=== PATIENT | male | born 1955 | race African-American/Black ===

== ENCOUNTER 2016-12-20 20:12 | Emergency (ER) | payer OTHER ==
[~2016-12-20] VITALS: Ht 180.3 cm; Wt 72.0 kg
[~2016-12-20 20:12] MED LIST: CALC0.253 PO; CALCIUM ACETATE PO; CINA30 PO; FURO80TA3 PO; SEVE800T8 PO; VALS320T9 PO
[2016-12-20] MEDS ORDERED: HYDRALAZINE 20MG/ML VIAL IV ONE (21:30)
[2016-12-20 21:49] LABS: PROTHROMBIN TIME 10.5 sec
[2016-12-20 21:50] LABS: EOSINOPHILS % 4.4 % (0.0-5.0); HEMATOCRIT. 37.2 % (42.0-52.0); HEMOGLOBIN. 11.9 g/dL (14.0-18.0); LYMPHOCYTES % 36.8 % (20.0-50.0); MEAN CORPUSCULAR HEMOGLOBIN 28.7 pg (28.0-32.0); MEAN CORPUSCULAR VOLUME 89.8 fL (80.0-94.0); MONOCYTES % 10.7 % (2.0-8.0); NEUTROPHILS % 47.1 % (40.0-76.0); PLATELET 210 x1000/uL (130-400); RED BLOOD CELL COUNT 4.15 mill/uL (4.7-6.1); RED CELL DISTRIBUTION WIDTH 19.7 % (11.6-14.6); WHITE BLOOD COUNT 3.8 x1000/uL (4.5-11.0)
[2016-12-20 21:58] LABS: ALANINE AMINOTRANSFERASE 11 IU/L (13-61); ALBUMIN 3.2 g/dL (3.4-5.0); ANION GAP 13; CALCIUM 8.6 mg/dL (8.5-10.1); CARBON DIOXIDE 33 mEq/L (21-32); CHLORIDE 96 mEq/L (98-107); INDEX HEMOLYSI 1 (1-3); INDEX ICTERIC 1 (1-4); INDEX LIPEMIC 1 (1-3); NT PRO B-TYPE NATRIURETIC PEP 5373 pg/mL (5-125); TROPONIN I < 0.02 ng/mL (0.00-0.04); UREA NITROGEN BLOOD 36 mg/dL (7-21); eGFR 7 mL/min (>60)
[2016-12-20 23:49] VITALS: BP 144/104
== END 2016-12-20 23:50 | disposition home or self-care (01) ==
LOC: ER 20:13
DX: I11.9 Hypertensive heart disease without heart failure (principal); R06.02 Shortness of breath; I25.10 Atherosclerotic heart disease of native coronary artery without angina pectoris; Z88.0 Allergy status to penicillin; Z79.899 Other long term (current) drug therapy
CPT/HCPCS: 36415; 71010; 80053; 83880; 84484; 85025; 85610; 93005; 96374; 99285; J0360; Z7610

== ENCOUNTER 2018-02-27 18:33 | Inpatient (IN) | payer OTHER ==
[~2018-02-27] VITALS: Ht 175.3 cm; Wt 75.3 kg
[~2018-02-27 18:33] MED LIST changes: +VALS320T2 PO; -VALS320T9 PO
[2018-02-27] MEDS ORDERED: ACETAMINOPHEN 325MG TABLET PO STA (19:19)
[2018-02-27] MEDS ORDERED: NITROGLYCERIN OINT 1GM/INCH UDPKT TD ONE (19:30)
[2018-02-27] MEDS ORDERED: ASPIRIN 81MG TABLET PO ONE (19:30)
[2018-02-27 19:55] LABS: BASOPHILS % 1.1 % (0.0-2.0); EOSINOPHILS % 3.7 % (0.0-5.0); HEMATOCRIT. 31.1 % (42.0-52.0); HEMOGLOBIN. 10.9 g/dL (14.0-18.0); LYMPHOCYTES % 24.1 % (20.0-50.0); MEAN CORPUSCULAR HEMOGLOBIN 29.3 pg (28.0-32.0); MEAN PLATELET VOLUME 7.1 fl (7.4-10.4); MONOCYTES % 8.8 % (2.0-8.0); NEUTROPHILS % 62.3 % (40.0-76.0); PLATELET 208 x1000/uL (130-400); RED CELL DISTRIBUTION WIDTH 13.8 % (11.6-14.6)
[2018-02-27 20:01] LABS: CHLORIDE 99 mEq/L (98-107)
[2018-02-27 20:04] LABS: ETHANOL BLOOD < 10 mg/dL; PROTHROMBIN TIME 10.4 sec (9.4-11.6)
[2018-02-28 03:00] VITALS: BP 134/78
[2018-02-28] MEDS ORDERED: MINO2.5T19 PO (04:03)
[2018-02-28] MEDS ORDERED: NIFE90TA34 PO (04:03)
[2018-02-28] MEDS: PANTOPRAZOLE 40MG DR TABLET PO SCH (06:19)
[2018-02-28 08:00] VITALS: BP 109/65
[2018-02-28] MEDS: SEVELAMER CARBONATE 800 MG TABLET PO SCH ×3 (08:49→16:45)
[2018-02-28] MEDS: CALCIUM ACETATE 667MG CAPSULE PO SCH ×3 (08:49→16:45)
[2018-02-28] MEDS: FUROSEMIDE 80MG TABLET PO SCH (08:50)
[2018-02-28] MEDS: NIFEDIPINE XL 90MG TAB PO SCH (08:50)
[2018-02-28] MEDS: HEPARIN 5000 UNITS/ML VIAL SUBCUT SCH ×2 (08:50→21:54)
[2018-02-28] MEDS: ASPIRIN 81MG TABLET PO SCH (08:50)
[2018-02-28] MEDS ORDERED: CALCIUM ACETATE 667 MG PO SCH (09:00)
[2018-02-28 09:33] LABS: CREATINE KINASE 93 IU/L (39-308)
[2018-02-28 09:34] LABS: CREATINE KINASE MB FRACTION 1.1 ng/mL (0.5-3.6)
[2018-02-28 12:14] VITALS: BP 123/75
[2018-02-28 16:12] VITALS: BP 151/88
[2018-02-28 17:56] LABS: CHLORIDE 94 mEq/L (98-107)
[2018-02-28 18:09] LABS: CREATINE KINASE 101 IU/L (39-308)
[2018-02-28 18:10] LABS: CREATINE KINASE MB FRACTION 1.3 ng/mL (0.5-3.6)
[2018-02-28] MEDS ORDERED: IOHEXOL-350 100 ML BOTTLE ONE (18:50)
[2018-02-28 20:00] VITALS: BP 167/101
[2018-02-28 23:25] LABS: CREATINE KINASE 116 IU/L (39-308)
[2018-02-28 23:26] LABS: CREATINE KINASE MB FRACTION 1.2 ng/mL (0.5-3.6)
[2018-03-01] VITALS: BP 159/90
[2018-03-01] MEDS: CLONIDINE 0.1MG TABLET PO PRN ×2 (03:02→17:09)
[2018-03-01 04:15] VITALS: BP 145/78
[2018-03-01] MEDS: PANTOPRAZOLE 40MG DR TABLET PO SCH (06:15)
[2018-03-01 08:00] VITALS: BP 150/83
[2018-03-01] MEDS: SEVELAMER CARBONATE 800 MG TABLET PO SCH ×2 (08:42→11:43)
[2018-03-01] MEDS: ASPIRIN 81MG TABLET PO SCH (08:42)
[2018-03-01] MEDS: CALCIUM ACETATE 667MG CAPSULE PO SCH ×2 (08:42→11:43)
[2018-03-01] MEDS: NIFEDIPINE XL 90MG TAB PO SCH (08:42)
[2018-03-01] MEDS: FUROSEMIDE 80MG TABLET PO SCH (08:42)
[2018-03-01] MEDS: HEPARIN 5000 UNITS/ML VIAL SUBCUT SCH (08:43)
[2018-03-01] MEDS ORDERED: SODIUM POLYSTYRENE SULFONATE 15 G/60 ML BOT PO NR (10:45)
[2018-03-01 12:00] VITALS: BP 156/90
[2018-03-01 13:51] LABS: T4 FREE 0.83 ng/dL (0.76-1.46)
[2018-03-01 16:00] VITALS: BP 170/100
[2018-03-01 16:58] VITALS: BP 173/98
[2018-03-02] MEDS ORDERED: FAMOTIDINE 20MG TABLET PO SCH (09:00)
== END 2018-03-01 17:40 | disposition home or self-care (01) | DRG 313 ==
LOC: ER 18:59 → 8WST 23:40 → EDBEDREQTM 23:56 → EDBEDREQ 23:56 → ENRESERV 02-28 01:57
PROVIDERS: ADMIT Internal Medicine; ATTEND Internal Medicine
DX: R07.89 Other chest pain (principal); I25.10 Atherosclerotic heart disease of native coronary artery without angina pectoris; I13.2 Hypertensive heart and chronic kidney disease with heart failure and with stage 5 chronic kidney disease, or end stage renal disease; K65.9 Peritonitis, unspecified; N18.6 End stage renal disease; I50.32 Chronic diastolic (congestive) heart failure; N25.81 Secondary hyperparathyroidism of renal origin; D63.8 Anemia in other chronic diseases classified elsewhere; M54.9 Dorsalgia, unspecified; E83.39 Other disorders of phosphorus metabolism; E87.5 Hyperkalemia; G89.29 Other chronic pain; R00.1 Bradycardia, unspecified; Z88.0 Allergy status to penicillin; Z99.2 Dependence on renal dialysis; Z82.49 Family history of ischemic heart disease and other diseases of the circulatory system; Z79.899 Other long term (current) drug therapy
CPT/HCPCS: 36415; 71045; 71275; 80048; 80053; 80061; 82550; 82553; 83690; 83735; 84439; 84443; 84484; 85025; 85610; 93005; G0482; J1644; J7030; Q9967

== ENCOUNTER 2018-11-23 19:00 | Inpatient (IN) | payer BC, OTHER ==
[~2018-11-23] VITALS: Ht 182.9 cm; Wt 78.6 kg
[~2018-11-23 19:00] MED LIST changes: -CALC0.253 PO; -CINA30 PO; +MINO2.5T19 PO; +NIFE90TA34 PO; -VALS320T2 PO
[2018-11-23 21:39] LABS: BASOPHILS % 0.8 % (0.0-2.0); EOSINOPHILS % 2.8 % (0.0-5.0); HEMOGLOBIN. 9.3 g/dL (14.0-18.0); MEAN CORPUSCULAR HEMOGLOBIN 28.5 pg (28.0-32.0); MEAN CORPUSCULAR VOLUME 82.8 fL (80.0-94.0); MEAN PLATELET VOLUME 6.8 fl (7.4-10.4); MONOCYTES % 9.3 % (2.0-8.0); NEUTROPHILS % 62.1 % (40.0-76.0); PLATELET 228 x1000/uL (130-400); RED BLOOD CELL COUNT 3.26 mill/uL (4.7-6.1); RED CELL DISTRIBUTION WIDTH 15.9 % (11.6-14.6)
[2018-11-23 21:45] LABS: CHLORIDE 99 mEq/L (98-107)
[2018-11-24] VITALS (9 sets, daily range): BP systolic 126–189; BP diastolic 76–108
[2018-11-24] MEDS ORDERED: NON FORMULARY PATIENT HOME MED XX SCH (03:00)
[2018-11-24] MEDS ORDERED: CLON0.3T PO (03:04)
[2018-11-24] MEDS: CLONIDINE 0.3MG TABLET PO SCH ×3 (03:31→21:03)
[2018-11-24] MEDS: NIFEDIPINE XL 90MG TAB PO SCH (08:30)
[2018-11-24] MEDS: MINOXIDIL 2.5MG TABLET PO SCH ×2 (08:30→21:03)
[2018-11-24] MEDS: SEVELAMER CARBONATE 800 MG TABLET PO SCH ×3 (08:30→18:10)
[2018-11-24] MEDS: FUROSEMIDE 40MG TABLET PO SCH (08:30)
[2018-11-24] MEDS ORDERED: SEVELAMER CARBONATE PO SCH (09:00)
[2018-11-24] MEDS ORDERED: NIFEDIPINE PO SCH (09:00)
[2018-11-24] MEDS ORDERED: EPOETIN ALFA 4000UNITS/ML VIAL SUBCUT SCH (18:00)
[2018-11-24 23:13] LABS: *AMPHETAMINES SCREEN URINE NEGATIVE (NEGATIVE); *BARBITURATES SCREEN URINE NEGATIVE (NEGATIVE); *BENZODIAZEPINES SCREEN URINE NEGATIVE (NEGATIVE)
[2018-11-24 23:14] LABS: *COCAINE SCREEN URINE NEGATIVE (NEGATIVE); CANNABINOID URINE SCREEN NEGATIVE (NEGATIVE); METHADONE URINE SCREEN NEGATIVE (NEGATIVE); OPIATES URINE SCREEN NEGATIVE (NEGATIVE); PHENCYCLIDINE URINE SCREEN NEGATIVE (NEGATIVE)
[2018-11-25 00:02] VITALS: BP 143/82
[2018-11-25 04:00] VITALS: BP 153/79
[2018-11-25] MEDS: CLONIDINE 0.3MG TABLET PO SCH ×3 (06:13→22:55)
[2018-11-25 07:30] LABS: BASOPHILS % 1.7 % (0.0-2.0); EOSINOPHILS % 3.9 % (0.0-5.0); HEMATOCRIT. 27.3 % (42.0-52.0); HEMOGLOBIN. 9.1 g/dL (14.0-18.0); LYMPHOCYTES % 31.2 % (20.0-50.0); MEAN CORPUSCULAR HEMOGLOBIN 27.9 pg (28.0-32.0); MEAN CORPUSCULAR VOLUME 83.7 fL (80.0-94.0); MONOCYTES % 9.6 % (2.0-8.0); NEUTROPHILS % 53.6 % (40.0-76.0); PLATELET 211 x1000/uL (130-400); RED BLOOD CELL COUNT 3.26 mill/uL (4.7-6.1); RED CELL DISTRIBUTION WIDTH 15.8 % (11.6-14.6)
[2018-11-25] MEDS ORDERED: REGADENOSON 0.4 MG/5 ML IV NR (07:45)
[2018-11-25] MEDS: SEVELAMER CARBONATE 800 MG TABLET PO SCH ×3 (07:50→18:19)
[2018-11-25 08:00] VITALS: BP 107/71
[2018-11-25] MEDS: NIFEDIPINE XL 90MG TAB PO SCH (09:00)
[2018-11-25] MEDS: MINOXIDIL 2.5MG TABLET PO SCH ×2 (09:00→22:56)
[2018-11-25] MEDS: FUROSEMIDE 40MG TABLET PO SCH (09:00)
[2018-11-25] MEDS ORDERED: REGADENOSON 0.4 MG/5 ML IV ONE (10:06)
[2018-11-25 12:00] VITALS: BP 153/88
[2018-11-25 16:00] VITALS: BP 119/70
[2018-11-25] MEDS ORDERED: NITROGLYCERIN 0.4MG TABLET SL SL PRN (17:15)
[2018-11-25] MEDS ORDERED: DOCUSATE SODIUM 100MG CAPSULE PO PRN (17:15)
[2018-11-25] MEDS ORDERED: ACETAMINOPHEN 325MG TABLET PO PRN (17:15)
[2018-11-25] MEDS ORDERED: HYDRALAZINE 20MG/ML VIAL IV PRN (17:15)
[2018-11-25] MEDS ORDERED: ONDANSETRON HCL 4MG/2ML INJ IV PRN (17:15)
[2018-11-25] MEDS ORDERED: MORPHINE SULFATE 4 MG/ML CPJ (NOT FOR IM USE) IV PRN (17:15)
[2018-11-25] MEDS ORDERED: ACETAMINOPHEN 650MG SUPP PR PRN (17:15)
[2018-11-25] MEDS ORDERED: DIPHENHYDRAMINE 50MG/ML VIAL IV PRN (17:15)
[2018-11-25 20:00] VITALS: BP 140/81
[2018-11-26] VITALS (8 sets, daily range): BP systolic 125–156; BP diastolic 75–90
[2018-11-26] MEDS: CLONIDINE 0.3MG TABLET PO SCH ×3 (06:00→21:15)
[2018-11-26 06:52] LABS: PROTHROMBIN TIME 9.8 sec (9.1-11.1)
[2018-11-26 07:17] LABS: HEMATOCRIT 26.6 % (42.0-52.0); MEAN CORPUSCULAR HEMOGLOBIN 27.9 pg (28.0-32.0); MEAN CORPUSCULAR VOLUME 82.9 fL (80.0-94.0); PLATELET 204 x1000/uL (130-400); RED BLOOD CELL COUNT 3.21 mill/uL (4.7-6.1); RED CELL DISTRIBUTION WIDTH 15.3 % (11.6-14.6)
[2018-11-26] MEDS: SEVELAMER CARBONATE 800 MG TABLET PO SCH ×3 (07:50→19:03)
[2018-11-26] MEDS: NIFEDIPINE XL 90MG TAB PO SCH (09:00)
[2018-11-26] MEDS: ASPIRIN 81MG TABLET PO SCH ×2 (09:00→13:49)
[2018-11-26] MEDS: FUROSEMIDE 40MG TABLET PO SCH ×2 (09:00→13:50)
[2018-11-26] MEDS: MINOXIDIL 2.5MG TABLET PO SCH ×2 (09:00→21:00)
[2018-11-26 10:14] LABS: T4 FREE 1.21 ng/dL (0.76-1.46)
== END 2018-11-26 23:10 | disposition home or self-care (01) | DRG 73 ==
LOC: ER 19:00 → 6WST 22:56 → EDBEDREQ 22:58 → EDBEDREQTM 22:58 → ENRESERV 11-24 00:18
PROVIDERS: ADMIT Internal Medicine; ATTEND Internal Medicine
PROC: 5A1D70Z Performance of Urinary Filtration, Intermittent, Less than 6 Hours Per Day (ICD-10-PCS; principal; 2018-11-24)
PROC: 5A1D70Z Performance of Urinary Filtration, Intermittent, Less than 6 Hours Per Day (ICD-10-PCS; 2018-11-26)
DX: G90.8 Other disorders of autonomic nervous system (principal); I50.33 Acute on chronic diastolic (congestive) heart failure; N18.6 End stage renal disease; I13.2 Hypertensive heart and chronic kidney disease with heart failure and with stage 5 chronic kidney disease, or end stage renal disease; E87.1 Hypo-osmolality and hyponatremia; D68.59 Other primary thrombophilia; I49.9 Cardiac arrhythmia, unspecified; E11.22 Type 2 diabetes mellitus with diabetic chronic kidney disease; D63.1 Anemia in chronic kidney disease; Z99.2 Dependence on renal dialysis; Z88.0 Allergy status to penicillin
CPT/HCPCS: 36415; 71045; 78452; 80048; 80061; 80305; 83036; 83735; 83880; 84439; 84443; 84484; 85027; 93005; 93017; 93306; 93880; 93970; 97162; 99285; A9500; J0885; J2785

== ENCOUNTER 2020-12-18 18:08 | Emergency (ER) | payer BC ==
[~2020-12-18] VITALS: Ht 182.9 cm; Wt 73.0 kg
[~2020-12-18 18:08] MED LIST changes: +CLON0.3T PO; -NIFE90TA34 PO; +NIFE90TA60 PO
[2020-12-18] MEDS ORDERED: CLONIDINE 0.1MG TABLET PO ONE (18:30)
[2020-12-18 19:28] LABS: CHLORIDE 101 mEq/L (98-107)
[2020-12-18 19:38] LABS: BASOPHILS % 0.6 % (0.0-2.0); EOSINOPHILS % 1.7 % (0.0-5.0); HEMOGLOBIN. 13.3 g/dL (14.0-18.0); LYMPHOCYTES % 19.8 % (20.0-50.0); MEAN CORPUSCULAR HEMOGLOBIN 27.1 pg (28.0-32.0); MEAN CORPUSCULAR VOLUME 83.3 fL (80.0-94.0); MEAN PLATELET VOLUME 7.6 fl (7.4-10.4); MONOCYTES % 5.6 % (2.0-8.0); NEUTROPHILS % 72.3 % (40.0-76.0); PLATELET 209 x1000/uL (130-400); RED BLOOD CELL COUNT 4.92 mill/uL (4.7-6.1); RED CELL DISTRIBUTION WIDTH 18.5 % (11.6-14.6)
[2020-12-19 01:10] VITALS: BP 158/90
== END 2020-12-19 03:50 | disposition home or self-care (01) ==
LOC: ER 18:08
DX: R06.02 Shortness of breath (principal); I12.0 Hypertensive chronic kidney disease with stage 5 chronic kidney disease or end stage renal disease; E11.22 Type 2 diabetes mellitus with diabetic chronic kidney disease; N18.6 End stage renal disease; Z99.2 Dependence on renal dialysis; Z79.899 Other long term (current) drug therapy; Z88.0 Allergy status to penicillin
CPT/HCPCS: 36415; 71045; 71250; 80053; 83880; 84484; 85025; 93005; 93971; 99285

== ENCOUNTER 2023-11-14 20:59 | Inpatient (IN) | payer BC ==
[~2023-11-14] VITALS: Ht 180.3 cm; Wt 68.5 kg
[~2023-11-14 20:59] MED LIST changes: +NIFE-49 MT; -NIFE90TA60 PO
[2023-11-14 21:54] LABS: EOSINOPHILS % 2.9 % (0.0-5.0); HEMATOCRIT. 39.8 % (42.0-52.0); HEMOGLOBIN. 13.5 g/dL (14.0-18.0); LYMPHOCYTES % 35.3 % (20.0-50.0); MEAN CORPUSCULAR HEMOGLOBIN 29.7 pg (28.0-32.0); MEAN CORPUSCULAR VOLUME 87.4 fL (80.0-94.0); MEAN PLATELET VOLUME 8.1 fl (7.4-10.4); MONOCYTES % 8.4 % (2.0-8.0); NEUTROPHILS % 52.4 % (40.0-76.0); PLATELET 176 x1000/uL (130-400); RED BLOOD CELL COUNT 4.55 mill/uL (4.7-6.1); RED CELL DISTRIBUTION WIDTH 16.6 % (11.6-14.6)
[2023-11-14 22:06] LABS: INR 0.9; PARTIAL THROMBOPLASTIN TIME 27.1 sec (23.4-31.0); PROTHROMBIN TIME 10.6 sec (9.6-11.0)
[2023-11-14 22:10] LABS: ALANINE AMINOTRANSFERASE 8 IU/L (10-49); ALBUMIN 4.3 g/dL (3.2-4.8); ASPARTATE AMINOTRANSFERASE 15 IU/L (<34); BILIRUBIN TOTAL 0.2 mg/dL (0.1-1.0); CALCIUM 9.7 mg/dL (8.7-10.4); CARBON DIOXIDE 30 mEq/L (21-32); CHLORIDE 97 mEq/L (98-107); GLUCOSE 95 mg/dL (70-105); POTASSIUM 3.8 mEq/L (3.5-5.1); PROTEIN TOTAL 8.1 g/dL (6.0-8.3); SODIUM 134 mEq/L (136-145); TROPONIN I HIGH SENSITIVITY 6 ng/L (3.0-53); UREA NITROGEN BLOOD 18 mg/dL (9-23)
[2023-11-14 22:12] LABS: CREATININE 6.1 mg/dL (0.6-1.3)
[2023-11-14] MEDS: SODIUM CHLORIDE 0.9% 250 ML IV ONE (22:32)
[2023-11-14] MEDS ORDERED: SODIUM CHLORIDE 0.9% 250 ML IV NR (22:45)
[2023-11-15 03:00] VITALS: BP_SYST 84; BP_SYST 88; BP_DIAS 53; BP_DIAS 54; PULSE 91; RESP 18; TEMP 97.1
[2023-11-15] MEDS ORDERED: Sensipar (03:27)
[2023-11-15] MEDS: SODIUM CHLORIDE 0.9% 250 ML IV NR (04:03)
[2023-11-15] MEDS: GENTAMICIN 100MG PREMIX 100 ML IV NR (04:17)
[2023-11-15 04:54] VITALS: BP 93/60; PULSE 86; RESP 19; TEMP 97.3
[2023-11-15] MEDS: VANCOMYCIN 1G PREMIX 200 ML IV NR (05:10)
[2023-11-15 06:28] LABS: HEMATOCRIT 40.3 % (42.0-52.0); HEMOGLOBIN 13.7 g/dL (14.0-18.0); MEAN CORPUSCULAR HEMOGLOBIN 28.9 pg (28.0-32.0); PLATELET 165 x1000/uL (130-400); RED BLOOD CELL COUNT 4.74 mill/uL (4.7-6.1); RED CELL DISTRIBUTION WIDTH 16.4 % (11.6-14.6)
[2023-11-15 06:37] LABS: CALCIUM 9.5 mg/dL (8.7-10.4); POTASSIUM 4.1 mEq/L (3.5-5.1)
[2023-11-15 06:41] LABS: CREATININE 7.1 mg/dL (0.6-1.3)
[2023-11-15 07:50] LABS: HEPATITIS B SURFACE ANTIGEN NEGATIVE (Negative); HEPATITIS C AB NON REACTIVE (Neg) (Negative)
[2023-11-15 08:00] VITALS: BP 88/54; PULSE 92; RESP 16; TEMP 96.8
[2023-11-15] MEDS: CALCIUM ACETATE 667MG CAPSULE PO SCH (08:28)
[2023-11-15] MEDS: FAMOTIDINE 20MG TABLET PO SCH (08:28)
[2023-11-15] MEDS: SEVELAMER CARBONATE 800 MG TABLET PO SCH (08:28)
[2023-11-15] MEDS: HEPARIN 5000 UNITS/ML VIAL SUBCUT SCH (08:29)
[2023-11-15] MEDS: SODIUM CHLORIDE 0.9% 250 ML IV ONE (08:59)
[2023-11-15 12:00] VITALS: BP 89/56; PULSE 81; RESP 18; TEMP 97.9
[2023-11-15] MEDS: MIDODRINE HCL 5MG TABLET PO NR (12:32)
[2023-11-15] MEDS: MIDODRINE HCL 5MG TABLET PO SCH (13:05)
[2023-11-15 16:00] VITALS: BP 97/57; PULSE 62; RESP 16; TEMP 97.7
[2023-11-15 20:21] VITALS: BP 93/63; PULSE 81; RESP 19; TEMP 97.5
[2023-11-16 00:06] VITALS: BP 116/73; PULSE 74; RESP 18; TEMP 97.5
[2023-11-16 04:15] VITALS: BP 106/58; PULSE 57; RESP 18; TEMP 97.5
[2023-11-16 08:22] VITALS: BP 102/67; PULSE 63; RESP 18; TEMP 97.5
[2023-11-16 12:00] VITALS: BP 108/62; PULSE 64; RESP 18; TEMP 98.4
[2023-11-16 13:55] VITALS: BP 108/62; PULSE 64; TEMP 98.4; O2SAT 100
== END 2023-11-16 16:15 | disposition home or self-care (01) | DRG 312 ==
LOC: ER 20:59 → 7WST 23:59 → EDBEDREQ 11-15 00:04 → EDBEDREQTM 11-15 00:04
PROVIDERS: ADMIT Internal Medicine Pulmonary Disease; ATTEND Internal Medicine Pulmonary Disease
DX: I95.3 Hypotension of hemodialysis (principal); N18.6 End stage renal disease; I12.0 Hypertensive chronic kidney disease with stage 5 chronic kidney disease or end stage renal disease; E87.1 Hypo-osmolality and hyponatremia; E78.5 Hyperlipidemia, unspecified; D72.819 Decreased white blood cell count, unspecified; D64.9 Anemia, unspecified; N28.89 Other specified disorders of kidney and ureter; Z88.0 Allergy status to penicillin; Z90.5 Acquired absence of kidney; Z99.2 Dependence on renal dialysis
CPT/HCPCS: 36415; 71045; 80048; 80053; 83880; 84145; 84484; 85025; 85027; 86705; 87340; 93005; 93306; 99285; J1580; J1644; J3370; J7050

== ENCOUNTER 2023-11-26 17:59 | Inpatient (IN) | payer BC ==
[~2023-11-26] VITALS: Ht 172.7 cm; Wt 70.3 kg
[~2023-11-26 17:59] MED LIST changes: +Sensipar
[2023-11-26 21:44] LABS: EOSINOPHILS % 3.5 % (0.0-5.0); HEMATOCRIT. 38.7 % (42.0-52.0); HEMOGLOBIN. 12.8 g/dL (14.0-18.0); MEAN CORPUSCULAR HEMOGLOBIN 28.4 pg (28.0-32.0); MEAN CORPUSCULAR HGB CONC 33.1 g/dL (31.0-37.0); MEAN CORPUSCULAR VOLUME 85.7 fL (80.0-94.0); MONOCYTES % 11.6 % (2.0-8.0); NEUTROPHILS % 46.9 % (40.0-76.0); PLATELET 151 x1000/uL (130-400); RED BLOOD CELL COUNT 4.51 mill/uL (4.7-6.1); RED CELL DISTRIBUTION WIDTH 16.8 % (11.6-14.6); WHITE BLOOD COUNT 3.1 x1000/uL (4.5-11.0)
[2023-11-26 21:55] LABS: INR 0.9; PROTHROMBIN TIME 10.5 sec (9.6-11.0)
[2023-11-26 21:57] LABS: ALBUMIN 4.1 g/dL (3.2-4.8); CALCIUM 9.7 mg/dL (8.7-10.4); CARBON DIOXIDE 31 mEq/L (21-32); CHLORIDE 100 mEq/L (98-107); GLUCOSE 90 mg/dL (70-105); POTASSIUM 3.7 mEq/L (3.5-5.1); PROTEIN TOTAL 7.1 g/dL (6.0-8.3); SODIUM 138 mEq/L (136-145); UREA NITROGEN BLOOD 23 mg/dL (9-23)
[2023-11-26 21:58] LABS: ALANINE AMINOTRANSFERASE 7 IU/L (10-49); ASPARTATE AMINOTRANSFERASE 15 IU/L (<34); BILIRUBIN TOTAL 0.2 mg/dL (0.1-1.0); TROPONIN I HIGH SENSITIVITY 8 ng/L (3.0-53)
[2023-11-26 22:02] LABS: ETHANOL BLOOD < 10 mg/dL (<10)
[2023-11-26 22:03] LABS: CREATININE 7.5 mg/dL (0.6-1.3)
[2023-11-27] VITALS: BP 127/85; PULSE 86; RESP 17; TEMP 97.5
[2023-11-27] MEDS ORDERED: ALBUTEROL (0.5%) 2.5MG/0.5ML NEB HHN PRN
[2023-11-27] MEDS ORDERED: CLONIDINE 0.1MG TABLET PO PRN
[2023-11-27] MEDS ORDERED: ACETAMINOPHEN 325MG TABLET PO PRN
[2023-11-27] MEDS ORDERED: HYDROCODONE/ACETAMINOPHEN 5/325MG TABLET PO PRN
[2023-11-27 00:41] VITALS: BP 138/84; PULSE 88; RESP 18; TEMP 97.7
[2023-11-27 04:00] VITALS: BP 133/56; PULSE 101; RESP 18; TEMP 97.5
[2023-11-27 07:12] LABS: HEMATOCRIT 37.6 % (42.0-52.0); HEMOGLOBIN 12.5 g/dL (14.0-18.0); MEAN CORPUSCULAR HEMOGLOBIN 28.4 pg (28.0-32.0); MEAN CORPUSCULAR HGB CONC 33.2 g/dL (31.0-37.0); MEAN CORPUSCULAR VOLUME 85.7 fL (80.0-94.0); PLATELET 151 x1000/uL (130-400); RED BLOOD CELL COUNT 4.39 mill/uL (4.7-6.1); RED CELL DISTRIBUTION WIDTH 16.4 % (11.6-14.6); WHITE BLOOD COUNT 2.6 x1000/uL (4.5-11.0)
[2023-11-27 07:30] VITALS: BP 117/80; PULSE 75; RESP 20; TEMP 97
[2023-11-27 08:41] LABS: CALCIUM 9.5 mg/dL (8.7-10.4); POTASSIUM 4.1 mEq/L (3.5-5.1)
[2023-11-27] MEDS: FUROSEMIDE 40MG TABLET PO SCH (08:50)
[2023-11-27] MEDS: MINOXIDIL 2.5MG TABLET PO SCH (08:50)
[2023-11-27] MEDS: ENOXAPARIN 30MG/0.3ML SYR SUBCUT SCH (08:50)
[2023-11-27 12:00] VITALS: BP 129/85; PULSE 79; RESP 19; TEMP 97.1
[2023-11-27 14:15] VITALS: BP 129/85; PULSE 78; TEMP 97.1; O2SAT 96
[2023-11-27] MEDS ORDERED: ALBUTEROL (0.083%) 2.5MG/3ML NEB HHN PRN (17:30)
== END 2023-11-27 18:31 | disposition home or self-care (01) | DRG 312 ==
LOC: ER 17:59 → 8WST 21:14 → EDBEDREQ 21:35
PROVIDERS: ADMIT Internal Medicine; ATTEND Internal Medicine
DX: I95.3 Hypotension of hemodialysis (principal); N18.6 End stage renal disease; I12.0 Hypertensive chronic kidney disease with stage 5 chronic kidney disease or end stage renal disease; D64.9 Anemia, unspecified; N28.89 Other specified disorders of kidney and ureter; Z99.2 Dependence on renal dialysis; Z90.5 Acquired absence of kidney; Z88.0 Allergy status to penicillin
CPT/HCPCS: 36415; 71045; 80048; 80053; 80320; 83880; 84484; 85025; 85027; 99285; J1650; G0480

== ENCOUNTER 2025-03-14 18:26 | Inpatient (IN) | payer BC ==
[~2025-03-14] VITALS: Ht 180.3 cm; Wt 76.4 kg
[2025-03-14 19:53] LABS: CHLORIDE 101 mEq/L (98-107); SODIUM 135 mEq/L (136-145)
[2025-03-14 19:54] LABS: CALCIUM 9.3 mg/dL (8.7-10.4); CARBON DIOXIDE 18 mEq/L (21-32)
[2025-03-14 19:59] LABS: GLUCOSE 92 mg/dL (70-105)
[2025-03-14 20:02] LABS: TROPONIN I HIGH SENSITIVITY 22 ng/L (3.0-53)
[2025-03-14 20:04] LABS: EOSINOPHILS % 4.9 % (0.0-5.0); HEMATOCRIT. 28.6 % (42.0-52.0); HEMOGLOBIN. 9.1 g/dL (14.0-18.0); LYMPHOCYTES % 16.6 % (20.0-50.0); MEAN CORPUSCULAR HEMOGLOBIN 26.9 pg (28.0-32.0); MEAN CORPUSCULAR HGB CONC 31.8 g/dL (31.0-37.0); MEAN CORPUSCULAR VOLUME 84.7 fL (80.0-94.0); MEAN PLATELET VOLUME 8.2 fl (7.4-10.4); MONOCYTES % 7.2 % (2.0-8.0); NEUTROPHILS % 70.3 % (40.0-76.0); PLATELET 190 x1000/uL (130-400); RED BLOOD CELL COUNT 3.38 mill/uL (4.7-6.1); RED CELL DISTRIBUTION WIDTH 17.7 % (11.6-14.6); WHITE BLOOD COUNT 5.2 x1000/uL (4.5-11.0)
[2025-03-14 20:08] LABS: PROTHROMBIN TIME 10.3 sec (9.6-11.0)
[2025-03-14 20:17] LABS: CREATININE 26.4 mg/dL (0.6-1.3); POTASSIUM 7.6 mEq/L (3.5-5.1); UREA NITROGEN BLOOD 103 mg/dL (9-23)
[2025-03-14] MEDS: CALCIUM CHLORIDE 1GM/10ML SYR IV ONE (20:51)
[2025-03-14] MEDS: SODIUM BICARBONATE 8.4% 50MEQ/50ML SYR IV ONE (20:55)
[2025-03-14] MEDS: DEXTROSE 50% WATER 50ML SYRINGE IV ONE (20:56)
[2025-03-14] MEDS: INSULIN REGULAR (HUMULIN R) 1000UNITS/10ML VIAL IV ONE (20:56)
[2025-03-14] MEDS: SODIUM ZIRCONIUM CYCLOSILICATE 10GM/PACKET PO ONE (21:31)
[2025-03-14 21:42] VITALS: PULSE 73; RESP 20; O2SAT 98
[2025-03-14] MEDS: ALBUTEROL (0.083%) 2.5MG/3ML NEB HHN ONE (21:42)
[2025-03-14] MEDS: FUROSEMIDE 100MG/10ML VIAL IV STA (21:50)
[2025-03-14] MEDS ORDERED: ZOLPIDEM TARTRATE 5MG TABLET PO PRN (22:45)
[2025-03-14] MEDS ORDERED: MORPHINE SULFATE 2 MG/ML INJ (NOT FOR IM USE) IV PRN (22:45)
[2025-03-14] MEDS ORDERED: CLONIDINE 0.1MG TABLET PO PRN (22:45)
[2025-03-14] MEDS ORDERED: IPRATROPIUM/ALBUTEROL 0.5-3(2.5)MG/3ML NEB NEB PRN (22:45)
[2025-03-14] MEDS ORDERED: MAGNESIUM/ALUMINUM HYDROXIDE/SIMETHICONE 30ML UDC PO PRN (22:45)
[2025-03-14] MEDS ORDERED: CLONIDINE 0.3MG TABLET PO SCH (23:00)
[2025-03-14] MEDS ORDERED: HYDROCODONE/ACETAMINOPHEN 5/325MG TABLET PO PRN (23:00)
[2025-03-14 23:16] LABS: POTASSIUM 5.7 mEq/L (3.5-5.1)
[2025-03-14 23:17] LABS: CALCIUM 9.5 mg/dL (8.7-10.4)
[2025-03-14] MEDS: HYDRALAZINE 20MG/ML VIAL IV PRN (23:17)
[2025-03-14 23:52] LABS: CREATININE 26.3 mg/dL (0.6-1.3)
[2025-03-15] VITALS (20 sets, daily range): BP systolic 108–159; BP diastolic 70–119; PULSE 81–116; RESP 12–24; TEMP 36.4–37.1; O2SAT 96–100
[2025-03-15] MEDS: SODIUM ZIRCONIUM CYCLOSILICATE 10GM/PACKET PO NR (00:37)
[2025-03-15] MEDS: PANTOPRAZOLE SODIUM 40 MG/VIAL IV SCH (00:37)
[2025-03-15] MEDS: NIFEDIPINE XL 60MG TAB PO SCH (00:37)
[2025-03-15] MEDS: MINOXIDIL 2.5MG TABLET PO SCH (06:09)
[2025-03-15 06:14] LABS: POTASSIUM 5.7 mEq/L (3.5-5.1)
[2025-03-15 06:15] LABS: CALCIUM 9.7 mg/dL (8.7-10.4)
[2025-03-15 06:45] LABS: HEPATITIS B SURFACE ANTIGEN NEGATIVE (Negative)
[2025-03-15 06:47] LABS: CREATININE 26.8 mg/dL (0.6-1.3)
[2025-03-15 06:55] LABS: BASOPHILS % 0.8 % (0.0-2.0); EOSINOPHILS % 2.9 % (0.0-5.0); HEMATOCRIT. 26.7 % (42.0-52.0); HEMOGLOBIN. 8.8 g/dL (14.0-18.0); LYMPHOCYTES % 18.1 % (20.0-50.0); MEAN CORPUSCULAR HEMOGLOBIN 27.5 pg (28.0-32.0); MEAN CORPUSCULAR HGB CONC 32.8 g/dL (31.0-37.0); MEAN PLATELET VOLUME 7.9 fl (7.4-10.4); NEUTROPHILS % 69.2 % (40.0-76.0); PLATELET 187 x1000/uL (130-400); RED BLOOD CELL COUNT 3.18 mill/uL (4.7-6.1); RED CELL DISTRIBUTION WIDTH 17.6 % (11.6-14.6); WHITE BLOOD COUNT 4.1 x1000/uL (4.5-11.0)
[2025-03-15 07:05] LABS: HEPATITIS A AB IGM NEGATIVE (Negative)
[2025-03-15 07:06] LABS: HEPATITIS B CORE AB IGM NEGATIVE (Negative); HEPATITIS C AB NON REACTIVE (Neg) (Negative)
[2025-03-15] MEDS ORDERED: NALOXONE HCL 0.4MG/ML VIAL IV PRN (08:15)
[2025-03-15] MEDS ORDERED: *PATIENT'S OWN MEDICATION STORAGE XX SCH (08:15)
[2025-03-15] MEDS: CALCIUM ACETATE 667MG CAPSULE PO SCH (08:42)
[2025-03-15] MEDS: FUROSEMIDE 40MG TABLET PO SCH (09:24)
[2025-03-15] MEDS ORDERED: HEPARIN 1000 UNITS/ML 10ML ONE (09:45)
[2025-03-15] MEDS ORDERED: LIDOCAINE HCL 1% 10 MG/ML 10ML VIAL ONE (09:45)
[2025-03-15] MEDS ORDERED: IOHEXOL-300 50 ML BOTTLE IV ONE (10:07)
[2025-03-15] MEDS: LEVETIRACETAM 1000MG PREMIX 100 ML IV SCH (14:54)
[2025-03-15 17:04] LABS: TROPONIN I HIGH SENSITIVITY 368 ng/L (3.0-53)
[2025-03-15] MEDS ORDERED: LEVETIRACETAM 500MG in NACL 100ML PREMIX IV SCH (21:00)
[2025-03-15] MEDS: LEVETIRACETAM 500MG PREMIX 100ML IV SCH (22:06)
[2025-03-16] VITALS (29 sets, daily range): BP systolic 118–156; BP diastolic 72–100; PULSE 70–104; RESP 10–22; TEMP 36.4–37.1; O2SAT 90–100
[2025-03-16] MEDS ORDERED: LORAZEPAM 2MG/ML UD SYRINGE IV PRN (03:30)
[2025-03-16] MEDS: LEVETIRACETAM 1000MG PREMIX 100 ML IV NR (03:41)
[2025-03-16] MEDS: LORAZEPAM 2MG/ML UD SYRINGE IV NR (03:42)
[2025-03-16 06:44] LABS: BASOPHILS % 0.9 % (0.0-2.0); EOSINOPHILS % 5.3 % (0.0-5.0); HEMATOCRIT. 25.8 % (42.0-52.0); HEMOGLOBIN. 8.5 g/dL (14.0-18.0); LYMPHOCYTES % 17.6 % (20.0-50.0); MEAN CORPUSCULAR HEMOGLOBIN 27.3 pg (28.0-32.0); MEAN CORPUSCULAR HGB CONC 33.1 g/dL (31.0-37.0); MEAN CORPUSCULAR VOLUME 82.4 fL (80.0-94.0); MEAN PLATELET VOLUME 7.6 fl (7.4-10.4); MONOCYTES % 9.5 % (2.0-8.0); NEUTROPHILS % 66.7 % (40.0-76.0); PLATELET 184 x1000/uL (130-400); RED BLOOD CELL COUNT 3.13 mill/uL (4.7-6.1); RED CELL DISTRIBUTION WIDTH 17.7 % (11.6-14.6); WHITE BLOOD COUNT 3.5 x1000/uL (4.5-11.0)
[2025-03-16 06:45] LABS: CALCIUM 9.6 mg/dL (8.7-10.4)
[2025-03-16 07:21] LABS: CREATININE 18.2 mg/dL (0.6-1.3)
[2025-03-16] MEDS: ONDANSETRON HCL 4MG/2ML INJ IV PRN (08:14)
[2025-03-16] MEDS ORDERED: CEFAZOLIN 1000MG PREMIX 50 ML IV NR (08:30)
[2025-03-16] MEDS ORDERED: IOHEXOL-300 50 ML BOTTLE IV ONE (12:30)
[2025-03-16] MEDS ORDERED: LIDOCAINE HCL 1% 10 MG/ML 10ML VIAL ONE ×2 (12:30→13:47)
[2025-03-16] MEDS ORDERED: FENTANYL CITRATE/PF 50MCG/ML 2ML VIAL ONE (13:47)
[2025-03-16] MEDS: CLINDAMYCIN 600MG PREMIX 50 ML IV SCH (14:00)
[2025-03-16] MEDS: FENTANYL CITRATE/PF 50MCG/ML 2ML VIAL IV ONE (14:03)
[2025-03-16] MEDS: DIPHENHYDRAMINE 50MG/ML VIAL IV PRN (22:57)
[2025-03-17] VITALS (17 sets, daily range): BP systolic 112–165; BP diastolic 8–99; PULSE 81–99; RESP 13–23; TEMP 36.5–36.8; O2SAT 93–100
[2025-03-17 07:08] LABS: BASOPHILS % 1.7 % (0.0-2.0); HEMATOCRIT. 27.9 % (42.0-52.0); HEMOGLOBIN. 9.1 g/dL (14.0-18.0); LYMPHOCYTES % 21.6 % (20.0-50.0); MEAN CORPUSCULAR HGB CONC 32.5 g/dL (31.0-37.0); MEAN CORPUSCULAR VOLUME 83.2 fL (80.0-94.0); MEAN PLATELET VOLUME 7.7 fl (7.4-10.4); MONOCYTES % 10.2 % (2.0-8.0); NEUTROPHILS % 61.5 % (40.0-76.0); PLATELET 194 x1000/uL (130-400); RED BLOOD CELL COUNT 3.35 mill/uL (4.7-6.1); RED CELL DISTRIBUTION WIDTH 18.1 % (11.6-14.6); WHITE BLOOD COUNT 3.2 x1000/uL (4.5-11.0)
[2025-03-17 07:26] LABS: CALCIUM 9.9 mg/dL (8.7-10.4); POTASSIUM 4.6 mEq/L (3.5-5.1)
[2025-03-17 09:14] LABS: CREATININE 12.2 mg/dL (0.6-1.3)
[2025-03-17 11:39] LABS: GLUCOSE URINE NEGATIVE (NEGATIVE); KETONES URINE TRACE (NEGATIVE)
[2025-03-17 12:19] LABS: CLARITY URINE TURBID (CLEAR); COLOR URINE BLOODY (YELLOW); NITRITE URINE NEGATIVE (NEGATIVE); OCCULT BLOOD URINE 3+ (NEGATIVE); PH URINE 7.5 (4.5-8.0); PROTEIN URINE 3+ (NEGATIVE); UROBILINOGEN URINE 0.2 E.U./dL (0.2-1.0)
[2025-03-17 12:26] LABS: *AMPHETAMINES SCREEN URINE NEGATIVE (NEGATIVE); *BARBITURATES SCREEN URINE NEGATIVE (NEGATIVE); *BENZODIAZEPINES SCREEN URINE NEGATIVE (NEGATIVE); *COCAINE SCREEN URINE NEGATIVE (NEGATIVE); CANNABINOID URINE SCREEN NEGATIVE (NEGATIVE); ECSTASY MDMA SCREEN URINE NEGATIVE (NEGATIVE); LEUKOCYTE ESTERASE URINE 3+ (NEGATIVE); METHADONE URINE SCREEN NEGATIVE (NEGATIVE); OPIATES URINE SCREEN NEGATIVE (NEGATIVE); PHENCYCLIDINE URINE SCREEN NEGATIVE (NEGATIVE); RBC URINE TNTC /hpf (0-2); SQUAMOUS EPITHELIAL CELL URINE NONE SEEN /lpf (RARE/1+); WBC URINE 25-50 /hpf (0-2)
[2025-03-17 12:29] LABS: BACTERIA URINE 1+; YEAST URINE NONE SEEN
[2025-03-18] VITALS (12 sets, daily range): BP systolic 117–144; BP diastolic 75–91; PULSE 78–93; RESP 12–19; TEMP 36.7–37; O2SAT 94–100
[2025-03-18 07:08] LABS: BASOPHILS % 1.3 % (0.0-2.0); HEMATOCRIT. 27.2 % (42.0-52.0); HEMOGLOBIN. 8.9 g/dL (14.0-18.0); LYMPHOCYTES % 23.5 % (20.0-50.0); MEAN CORPUSCULAR HEMOGLOBIN 27.3 pg (28.0-32.0); MEAN CORPUSCULAR HGB CONC 32.8 g/dL (31.0-37.0); MEAN CORPUSCULAR VOLUME 83.1 fL (80.0-94.0); MEAN PLATELET VOLUME 7.6 fl (7.4-10.4); MONOCYTES % 11.9 % (2.0-8.0); NEUTROPHILS % 57.3 % (40.0-76.0); PLATELET 183 x1000/uL (130-400); RED BLOOD CELL COUNT 3.27 mill/uL (4.7-6.1); RED CELL DISTRIBUTION WIDTH 17.2 % (11.6-14.6)
[2025-03-18 07:24] LABS: POTASSIUM 4.2 mEq/L (3.5-5.1)
[2025-03-18 08:45] LABS: CREATININE 9.3 mg/dL (0.6-1.3)
[2025-03-19] VITALS (19 sets, daily range): BP systolic 103–159; BP diastolic 67–96; PULSE 68–89; RESP 12–26; TEMP 36.3–36.9; O2SAT 90–100
[2025-03-19] MEDS: MORPHINE SULFATE 4 MG/ML INJ (FOR IV/IM USE) IV PRN (14:45)
[2025-03-20] VITALS (14 sets, daily range): BP systolic 104–125; BP diastolic 73–89; PULSE 66–86; RESP 13–21; TEMP 36.2–37.7; O2SAT 93–100
[2025-03-21] VITALS (28 sets, daily range): BP systolic 106–152; BP diastolic 60–102; PULSE 70–82; RESP 12–22; TEMP 35.5584–37; O2SAT 93–99
[2025-03-21] MEDS ORDERED: HEPARIN 1000 UNITS/ML 10ML ONE (07:54)
[2025-03-21] MEDS ORDERED: LIDOCAINE HCL 1% 10 MG/ML 10ML VIAL ONE (07:54)
[2025-03-21] MEDS ORDERED: FENTANYL CITRATE/PF 50MCG/ML 2ML VIAL ONE (08:19)
[2025-03-21] MEDS: CLINDAMYCIN 600MG PREMIX 50 ML IV NR (08:20)
[2025-03-21] MEDS: ACETAMINOPHEN 325MG TABLET PO PRN (10:17)
[2025-03-21] MEDS ORDERED: KEPP500 MT (17:57)
[2025-03-22] MEDS ORDERED: ATOR20TA65 MT (18:38)
[2025-03-22] MEDS ORDERED: ASPI-1497 MT (18:38)
[2025-03-22] MEDS ORDERED: DIPH25TA62 MT (18:38)
[2025-03-22] MEDS ORDERED: ALBU18HF2 IH (18:39)
[2025-03-22] MEDS ORDERED: FLUT15.844 BOTHNSTRLS (18:39)
== END 2025-03-21 21:00 | disposition home or self-care (01) | DRG 314 ==
LOC: ER 18:26 → 5EST 20:52 → EDBEDREQ 20:55 → EDBEDREQTM 20:55 → EDBEDREQSVC 20:55 → ENRESERV 22:11
PROVIDERS: ADMIT Internal Medicine; ATTEND Internal Medicine
PROC: 05HM33Z Insertion of Infusion Device into Right Internal Jugular Vein, Percutaneous Approach (ICD-10-PCS; principal; 2025-03-15)
PROC: B5131ZA Fluoroscopy of Right Jugular Veins using Low Osmolar Contrast, Guidance (ICD-10-PCS; 2025-03-15)
PROC: B543ZZA Ultrasonography of Right Jugular Veins, Guidance (ICD-10-PCS; 2025-03-15)
PROC: 5A1D70Z Performance of Urinary Filtration, Intermittent, Less than 6 Hours Per Day (ICD-10-PCS; 2025-03-15)
PROC: B51W1ZZ Fluoroscopy of Dialysis Shunt/Fistula using Low Osmolar Contrast (ICD-10-PCS; 2025-03-16)
PROC: 5A1D70Z Performance of Urinary Filtration, Intermittent, Less than 6 Hours Per Day (ICD-10-PCS; 2025-03-16)
PROC: 5A1D70Z Performance of Urinary Filtration, Intermittent, Less than 6 Hours Per Day (ICD-10-PCS; 2025-03-17)
PROC: 5A1D70Z Performance of Urinary Filtration, Intermittent, Less than 6 Hours Per Day (ICD-10-PCS; 2025-03-19)
PROC: 05PYX3Z Removal of Infusion Device from Upper Vein, External Approach (ICD-10-PCS; 2025-03-21)
PROC: 02H633Z Insertion of Infusion Device into Right Atrium, Percutaneous Approach (ICD-10-PCS; 2025-03-21)
PROC: 0JH63XZ Insertion of Tunneled Vascular Access Device into Chest Subcutaneous Tissue and Fascia, Percutaneous Approach (ICD-10-PCS; 2025-03-21)
PROC: B5181ZA Fluoroscopy of Superior Vena Cava using Low Osmolar Contrast, Guidance (ICD-10-PCS; 2025-03-21)
PROC: 5A1D70Z Performance of Urinary Filtration, Intermittent, Less than 6 Hours Per Day (ICD-10-PCS; 2025-03-21)
DX: T82.510A Breakdown (mechanical) of surgically created arteriovenous fistula, initial encounter (principal); N18.6 End stage renal disease; I13.2 Hypertensive heart and chronic kidney disease with heart failure and with stage 5 chronic kidney disease, or end stage renal disease; T82.868A Thrombosis due to vascular prosthetic devices, implants and grafts, initial encounter; I50.9 Heart failure, unspecified; G40.909 Epilepsy, unspecified, not intractable, without status epilepticus; I95.3 Hypotension of hemodialysis; N28.89 Other specified disorders of kidney and ureter; D64.9 Anemia, unspecified; R31.0 Gross hematuria; Y65.8 Other specified misadventures during surgical and medical care; Z79.899 Other long term (current) drug therapy; Z88.0 Allergy status to penicillin; Z90.5 Acquired absence of kidney; Z99.2 Dependence on renal dialysis; Y92.89 Other specified places as the place of occurrence of the external cause
CPT/HCPCS: 36415; 36556; 36558; 36589; 36901; 71045; 76700; 77001; 80048; 80305; 81003; 82962; 83735; 84484; 85025; 86705; 86709; 86850; 86900; 87340; 90935; 93005; 93306; 93970; 94070; 94640; 94664; 98960; 99152; 99153; 99291; A4606; C1752; C1887; J0360; J1200; J1644; J1815; J1938; J1953; J2003; J2060; J2270; J2405; J2470; J3010; J3490; Q9967; G0500

== ENCOUNTER 2025-03-22 12:22 | Inpatient (IN) | payer BC ==
[~2025-03-22] VITALS: Ht 180.3 cm; Wt 69.9 kg
[~2025-03-22 12:22] MED LIST changes: +KEPP500 MT; -Sensipar
[2025-03-22 13:00] LABS: EOSINOPHILS % 3.9 % (0.0-5.0); HEMATOCRIT. 27.4 % (42.0-52.0); HEMOGLOBIN. 9.1 g/dL (14.0-18.0); LYMPHOCYTES % 16.8 % (20.0-50.0); MEAN CORPUSCULAR HEMOGLOBIN 27.4 pg (28.0-32.0); MEAN CORPUSCULAR HGB CONC 33.1 g/dL (31.0-37.0); MEAN CORPUSCULAR VOLUME 82.9 fL (80.0-94.0); MEAN PLATELET VOLUME 7.8 fl (7.4-10.4); MONOCYTES % 8.4 % (2.0-8.0); NEUTROPHILS % 69.9 % (40.0-76.0); PLATELET 195 x1000/uL (130-400); RED BLOOD CELL COUNT 3.31 mill/uL (4.7-6.1); WHITE BLOOD COUNT 4.2 x1000/uL (4.5-11.0)
[2025-03-22 13:09] LABS: CHLORIDE 100 mEq/L (98-107); POTASSIUM 4.9 mEq/L (3.5-5.1); SODIUM 139 mEq/L (136-145)
[2025-03-22 13:10] LABS: CALCIUM 11.5 mg/dL (8.7-10.4); CARBON DIOXIDE 27 mEq/L (21-32)
[2025-03-22 13:15] LABS: GLUCOSE 92 mg/dL (70-105); TROPONIN I HIGH SENSITIVITY 16 ng/L (3.0-53); UREA NITROGEN BLOOD 46 mg/dL (9-23)
[2025-03-22 14:09] LABS: CREATININE 11.6 mg/dL (0.6-1.3)
[2025-03-22] MEDS ORDERED: DIPHENHYDRAMINE 50MG/ML VIAL IV PRN (16:45)
[2025-03-22] MEDS ORDERED: MAGNESIUM/ALUMINUM HYDROXIDE/SIMETHICONE 30ML UDC PO PRN (16:45)
[2025-03-22] MEDS ORDERED: CLONIDINE 0.1MG TABLET PO PRN (16:45)
[2025-03-22] MEDS ORDERED: ACETAMINOPHEN 325MG TABLET PO PRN (16:45)
[2025-03-22] MEDS ORDERED: IPRATROPIUM/ALBUTEROL 0.5-3(2.5)MG/3ML NEB HHN PRN (16:45)
[2025-03-22] MEDS: SEVELAMER CARBONATE 800 MG TABLET PO SCH (18:09)
[2025-03-22 18:32] VITALS: BP 123/75; PULSE 75; RESP 20; TEMP 36.5
[2025-03-22] MEDS ORDERED: DIPH25TA62 MT (18:38)
[2025-03-22] MEDS ORDERED: ASPI-1497 MT (18:38)
[2025-03-22] MEDS ORDERED: ATOR20TA65 MT (18:38)
[2025-03-22] MEDS ORDERED: FLUT15.844 BOTHNSTRLS (18:39)
[2025-03-22] MEDS ORDERED: ALBU18HF2 IH (18:39)
[2025-03-22 20:37] LABS: HEPATITIS B SURFACE ANTIGEN NEGATIVE (Negative)
[2025-03-22 20:57] LABS: HEPATITIS A AB IGM NEGATIVE (Negative)
[2025-03-22 20:58] LABS: HEPATITIS B CORE AB IGM NEGATIVE (Negative); HEPATITIS C AB NON REACTIVE (Neg) (Negative)
[2025-03-22] MEDS: LEVETIRACETAM 500MG TABLET PO SCH (21:04)
[2025-03-22] MEDS: ATORVASTATIN CALCIUM 40MG TABLET PO SCH (21:04)
[2025-03-22] MEDS: MINOXIDIL 2.5MG TABLET PO SCH (21:05)
[2025-03-23] VITALS (11 sets, daily range): BP systolic 121–137; BP diastolic 64–84; PULSE 69–86; RESP 16–18; TEMP 36.44736–36.6; O2SAT 97–100
[2025-03-23 00:12] LABS: TROPONIN I HIGH SENSITIVITY 18 ng/L (3.0-53)
[2025-03-23 07:00] LABS: TROPONIN I HIGH SENSITIVITY 14 ng/L (3.0-53)
[2025-03-23] MEDS: ASPIRIN 81MG TABLET PO ONE (09:34)
[2025-03-23] MEDS: NIFEDIPINE XL 60MG TAB PO SCH (09:34)
[2025-03-23] MEDS: ACETAMINOPHEN 325MG TABLET PO PRN (09:37)
[2025-03-23] MEDS: EPOETIN ALFA-EPBX 4,000 UNIT/ML VIAL SUBCUT SCH (14:00)
== END 2025-03-23 13:55 | disposition home or self-care (01) | DRG 313 ==
LOC: ER 12:22 → 5WST 14:34 → EDBEDREQ 14:37
PROVIDERS: ADMIT Internal Medicine; ATTEND Internal Medicine
PROC: 5A1D70Z Performance of Urinary Filtration, Intermittent, Less than 6 Hours Per Day (ICD-10-PCS; principal; 2025-03-23)
DX: R07.89 Other chest pain (principal); N18.6 End stage renal disease; I13.11 Hypertensive heart and chronic kidney disease without heart failure, with stage 5 chronic kidney disease, or end stage renal disease; G40.909 Epilepsy, unspecified, not intractable, without status epilepticus; N28.89 Other specified disorders of kidney and ureter; T78.49XA Other allergy, initial encounter; X58.XXXA Exposure to other specified factors, initial encounter; R31.0 Gross hematuria; I95.3 Hypotension of hemodialysis; Z99.2 Dependence on renal dialysis; Z91.013 Allergy to seafood; Z90.5 Acquired absence of kidney; Z88.0 Allergy status to penicillin; Z79.899 Other long term (current) drug therapy
CPT/HCPCS: 36415; 71045; 80048; 83880; 84484; 85025; 86705; 86709; 87340; 90935; 93005; 99285; A4606; J0885